=== PATIENT | female | born 1965 | race Hispanic/Latino ===

== ENCOUNTER 2017-09-27 08:43 | Outpatient (CLI) | payer BC | END 2017-09-27 08:44 | disposition home or self-care (01) | LOC: BICMAMMO 08:43 | PROVIDERS: ATTEND Family Medicine | DX: Z12.31 Encounter for screening mammogram for malignant neoplasm of breast (principal) | CPT/HCPCS: 77063; 77067 ==

== ENCOUNTER 2018-08-18 10:17 | Outpatient (CLI) | payer BC ==
--- NOTE | 2018-08-18 12:34 | RAD ---
TWO VIEWS LUMBAR SPINE: History: Back pain running down right leg. FINDINGS: AP and lateral views obtained. Weight bearing radiographs demonstrate disc space height loss with ant erior and posterior osteophytes at L2-3, L3-4, and L4-5. Findings compatible with changes of minimal spondylosis. No evidence of karen or retrolisthesis seen. IMPRESSION: Mid lumbar mild changes of spondylosis. POS: DARRELL
== END 2018-08-18 10:18 | disposition home or self-care (01) ==
LOC: BICRAD 10:17
PROVIDERS: ATTEND Internal Medicine Rheumatology
DX: M25.551 Pain in right hip (principal); M54.5 Low back pain; M47.896 Other spondylosis, lumbar region
CPT/HCPCS: 72100

== ENCOUNTER 2019-05-13 15:17 | Outpatient (CLI) | payer BC ==
--- NOTE | 2019-05-13 16:59 | MRI ---
LUMBAR SPINE MRI WITHOUT CONTRAST: 05/13/19 COMPARISON: None. HISTORY: Low back pain radiating down the right leg for one year. TECHNIQUE: Multiplanar and multisequence MR imaging of the lumbar spine obtained without contrast. FINDINGS: The sagittal STIR imaging demonstrates no focal area of osseous marrow edema. On the basis of five lumbar type vertebral bodies, the conus medullaris terminates at the L1-2 level. Lumbar vertebral body height and alignment appears normal. T12-L1: Mild bilateral facet hypertrophy. No central canal or neural foraminal stenosis. L1-2: Minimal disc bulge. No central canal or neural foraminal stenosis. L2-3: Mild bilateral facet hypertrophy. Mild disc bulge. No significant central canal or neural darryl inal stenosis. L3-4: Mild bilateral facet hypertrophy. Minimal disc bulge and disc desiccation. No central canal or neural foraminal stenosis. L4-5: Small perineural sleeve cyst present on the left. Mild bilateral facet hypertrophy. No signifi cant central canal or neural foraminal stenosis. L5-S1: No significant central canal or neural stenosis. The visualized retroperitoneal structures demonstrate no acute findings. IMPRESSION: No significant central canal or neural foraminal stenosis within the lumbar spine. POS: [facility]
== END 2019-05-13 15:18 | disposition home or self-care (01) ==
LOC: BICMRI 15:17
PROVIDERS: ATTEND Family Medicine
DX: M51.16 Intervertebral disc disorders with radiculopathy, lumbar region (principal)
CPT/HCPCS: 72148

== ENCOUNTER 2019-08-27 13:03 | Outpatient (CLI) | payer BC ==
--- NOTE | 2019-08-27 16:27 | MMO ---
Bilateral MAMMO Bilat Screen [facility]. CLINICAL HISTORY: Patient is 53 years old and is seen for screening. The patient has no family history of breast cancer. The patient has no personal history of cancer. VIEWS: The views performed were: bilateral craniocaudal with tomosynthesis and bilateral mediolateral oblique with tomosynthesis. FILMS COMPARED: The present examination has been compared to prior imaging studies performed at [facility] on 08/03/2014, 08/09/2015, 08/13/2016 and 09/27/2017. This study has been interpreted with the assistance of computer-aided detection. MAMMOGRAM FINDINGS: There are scattered fibroglandular densities. There are no suspicious masses, suspicious calcifications, or new areas of architectural distortion. IMPRESSION: THERE IS NO MAMMOGRAPHIC EVIDENCE OF MALIGNANCY. A ROUTINE FOLLOW-UP MAMMOGRAM IN 1 YEAR IS RECOMMENDED. THE RESULTS OF THIS EXAM WERE SENT TO THE PATIENT. ACR BI-RADS Category 1 - Negative MAMMOGRAPHY NOTE: 1. A negative mammogram report should not delay a biopsy if a dominant of clinically suspicious mass is present. 2. Approximately 10% to 15% of breast cancers are not detected by mammography. 3. Adenosis and dense breasts may obscure an underlying neoplasm. Reported by: ЮЛИЯ HENDRIX MD Electonically Signed: [id number]
== END 2019-08-27 13:04 | disposition home or self-care (01) ==
LOC: BICMAMMO 13:03
PROVIDERS: ATTEND Family Medicine
DX: Z12.31 Encounter for screening mammogram for malignant neoplasm of breast (principal)
CPT/HCPCS: 77063; 77067

== ENCOUNTER 2019-09-01 14:00 | Outpatient (CLI) | payer BC ==
--- NOTE | 2019-09-01 14:41 | RAD ---
RIGHT KNEE 3 VIEWS: HISTORY: Arthralgia in knee. FINDINGS: Medial and lateral joint spaces are preserved. Very mild degenerative change. Minimal spurring from the tibial spine. No joint effusion. No fracture or acute abnormality. IMPRESSION: Minimal degenerative change. No acute abnormality. POS: C
== END 2019-09-01 14:01 | disposition home or self-care (01) ==
LOC: BICRAD 14:00
PROVIDERS: ATTEND Family Medicine
DX: M25.561 Pain in right knee (principal); M17.11 Unilateral primary osteoarthritis, right knee

== ENCOUNTER 2020-11-03 14:17 | Outpatient (CLI) | payer BC | END 2020-11-03 14:18 | disposition home or self-care (01) | LOC: BICMAMMO 14:17 | PROVIDERS: ATTEND Family Medicine | DX: Z12.31 Encounter for screening mammogram for malignant neoplasm of breast (principal) | CPT/HCPCS: 77063; 77067 ==

== ENCOUNTER 2021-12-13 14:51 | Outpatient (CLI) | payer BC | END 2021-12-13 14:52 | disposition home or self-care (01) | LOC: BICMAMMO 14:51 | PROVIDERS: ATTEND Family Medicine | DX: Z12.31 Encounter for screening mammogram for malignant neoplasm of breast (principal) | CPT/HCPCS: 77063; 77067 ==

== ENCOUNTER 2024-06-01 06:49 | Outpatient (CLI) | payer BC ==
[2024-06-01] MEDS ORDERED: Barium Sulfate 96% 176 GM BOT (xray ONLY) ONE (07:17)
[2024-06-01] MEDS ORDERED: E-Z-HD 98% W/W 340GM BOT (x-ray ONLY) ONE (07:17)
== END 2024-06-01 06:50 | disposition home or self-care (01) ==
LOC: RAD 06:49
PROVIDERS: ATTEND Family Medicine
DX: R13.12 Dysphagia, oropharyngeal phase (principal)
CPT/HCPCS: 74220